=== PATIENT | male | born 1985 | race Caucasian/White ===

== ENCOUNTER 2020-04-18 18:03 | Emergency (ER) | payer SELFPAY ==
[~2020-04-18] VITALS: Ht 180.3 cm; Wt 77.1 kg
[2020-04-18 18:09] VITALS: BP 127/61
--- NOTE | 2020-04-18 18:59 | NUR ---
Pt cricket [place] [employer] for prebook clearance. C/o right hand pain and broken 3rd digit on right hand. medhx: denies
[2020-04-18] MEDS: IBUPROFEN 600 MG TAB PO ONE (19:05)
[2020-04-18] MEDS: ACETAMINOPHEN EXTRA STRENGTH 500 MG TAB PO ONE (19:06)
[2020-04-18 19:46] VITALS: BP 127/61
--- NOTE | 2020-04-18 19:46 | NUR ---
Patient discharged with v/s stable. Written and verbal after care instructions given and explained. Patient alert, oriented and verbalized understanding of instructions. Police with in custody. All questions addressed prior to discharge. ID band removed. Patient advised to follow up with PMD. Rx of IBUPROFEN given. Patient educated on indication of medication including possible reaction and side effects. Opportunity to ask questions provided and answered.
== END 2020-04-18 19:46 | disposition home or self-care (01) ==
LOC: MED 18:03
DX: S62.602A Fracture of unspecified phalanx of right middle finger, initial encounter for closed fracture (principal); Y04.0XXA Assault by unarmed brawl or fight, initial encounter; Y93.89 Activity, other specified; Y92.89 Other specified places as the place of occurrence of the external cause; Y99.8 Other external cause status
CPT/HCPCS: 73140; 99283